=== PATIENT | female | born 1970 | race Caucasian/White ===

== ENCOUNTER 2018-02-24 07:06 | Emergency (ER) | payer OTHER ==
--- NOTE | 2018-02-24 07:19 | ED ---
Headache - History Of Current Complaint Chief Complaint: EDHeadache Stated Complaint: HEADACHE Time Seen by Provider: 02/24/18 07:09 Hx Last Menstrual Period: 05/13/12 - Allergies/Home Medications Allergies/Adverse Reactions: Allergies Allergy/AdvReac Type Severity Reaction Status Date / Time MS Iodinated Contrast Media Allergy Intermediate Hives Verified 07/03/16 14:35 [IV CONTRAST DYE] MS Leuprolide [From Lupron] Allergy Intermediate Rash Verified 07/03/16 14:35 MS Erythromycin Allergy Rash Verified 07/03/16 14:35 [Erythromycin] horse hair serum Allergy Rash Uncoded 07/03/16 14:35 PMH/Surg Hx/FS Hx/Imm Hx Endocrine/Hematology History: Reports: Other Endocrine/Hematological Disorders - Factor V Liden Respiratory History: Denies: Other Respiratory Problems/Disorders History: Reports: Other Problems/Disorders - severe bleeding during giving Musculoskeletal History: Reports: Hx Arthritis - Surgical History Surgery Procedure, Year, and Place: sinus surgery Infectious Disease History: No Infectious Disease History: Denies: Traveled Outside the [place] in Last 30 Days - Family History Known Family History: Positive: Blood Disorder - Factor V liden, Other - Brain CA Negative: Cardiac Disease, Hypertension, Diabetes - Social History Alcohol Use: Weekly Alcohol Amount: 1-3/week Substance Use Type: Reports: None Smoking Status (MU): Never Smoked Tobacco Physical Exam Vital Signs On Initial Exam: Initial Vitals Temp Pulse Resp BP Pulse Ox 98.1 F 76 16 130/80 98 02/24/18 07:09 02/24/18 07:09 02/24/18 07:09 02/24/18 07:09 02/24/18 07:09 Diagnostics - Vital Signs Vital Signs Temp Pulse Resp BP Pulse Ox 02/24/18 07:09 98.1 F 76 16 130/80 98 - Laboratory Lab Statement: Any lab studies that have been ordered have been reviewed, and results considered in the medical decision making process. Discharge - Discharge Plan Referrals: Ilda Dumont MD [Primary Care Provider] -
[2018-02-24 07:44] LABS: ABS Basophils 0 10^3/ul (0-0.2); ABS Eosinophils 0.1 10^3/ul (0-0.6); ABS Monocytes 0.3 10^3/ul (0-0.8); ABS Neutrophils 4.8 10^3/ul (1.5-7.7); ABS Nucleated RBC 0 10^3/ul; Eosinophil % 2.3 % (0-6); Hematocrit 35 % (35-47); Hemoglobin 12.1 g/dl (12.0-16.0); Lymphocyte % 16.5 % (25-47); Mean Corpuscular HGB Conc 35 g/dl (31-36); Mean Corpuscular Hemoglobin 34 pg (27-31); Mean Corpuscular Volume 98 fL (80-97); Mean Platelet Volume 8.6 um3 (7.4-10.4); Nucleated Red Blood Cells % 0; Platelet Count 208 10^3/ul (150-450); Red Blood Count 3.51 10^6/ul (4.00-5.40); Red Cell Distribution Width 12 % (10.5-15); White Blood Count 6.3 10^3/ul (3.5-10.8)
[2018-02-24 07:50] LABS: INR 0.86 (0.77-1.02)
[2018-02-24 07:59] LABS: EGFR Non-African American 71.1 (>60)
--- NOTE | 2018-02-24 08:01 | RAD ---
INDICATION: Headaches COMPARISON: CT brain July 01, 2016 TECHNIQUE: Noncontrast axial source images were acquired from the skull base to the vertex. FINDINGS: Ventricles/sulci: The ventricles and cisterns are normal in size and configuration for age. 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 Intracranial hemorrhage:None. Extra-axial spaces: There are no abnormal extra axial fluid collections or evidence of extra-axial mass. Calvarium: There is no calvarial fracture or other calvarial abnormality. Scalp: There is no evidence of scalp or extracalvarial soft tissue abnormality. Paranasal sinuses/mastoid: The paranasal sinuses and mastoid air cells are clear. Other: None. IMPRESSION: NO ACUTE INTRACRANIAL FINDINGS
[2018-02-24 09:35] VITALS: BP 110/67
--- NOTE | 2018-02-24 13:08 | ED ---
Headache - HPI Summary HPI Summary: Patient is a 47-year-old female with no significant PMH presenting to the ED with right-sided frontal headache which has been intermittent, rated a 8/10 in severity, not acute onset and not worst of life. She states she is not prone to headaches or migraines. She states symptoms have been present for last 2 days and began when she was visiting [place]. She recently returned continues to have the headache although it has decreased in severity. She has not taken anything [id number] for medications. - History Of Current Complaint Chief Complaint: EDHeadache Stated Complaint: HEADACHE Time Seen by Provider: 02/24/18 07:09 Hx Obtained From: Patient Hx Last Menstrual Period: 05/13/12 Onset/Duration: Started days ago Initially Headache Was: Initial Pain Scale(0-10)= - 8 Timing: Intermittent, Lasting:, Hours Character: Sharp Location of Headache: Frontal - right side Aggravating Factor: Nothing Allevating Factors: Nothing Associated Signs And Symptoms: Negative - Risk Factors SAH Risk Factors: Negative Meningitis Risk Factors: Negative SDH Risk Factors: Negative Temporal Arteritis Risk Factors: Female - Allergies/Home Medications Allergies/Adverse Reactions: Allergies Allergy/AdvReac Type Severity Reaction Status Date / Time erythromycin base Allergy Rash Verified 02/24/18 07:37 Iodinated Contrast- Oral and Allergy Hives Verified 02/24/18 07:37 IV Dye leuprolide Allergy Rash Verified 02/24/18 07:37 horse hair serum Allergy Rash Uncoded 07/03/16 14:35 PMH/Surg Hx/FS Hx/Imm Hx Previously Healthy: Yes Endocrine/Hematology History: Reports: Other Endocrine/Hematological Disorders - Factor V Liden Respiratory History: Denies: Other Respiratory Problems/Disorders History: Reports: Other Problems/Disorders - severe bleeding during giving Musculoskeletal History: Reports: Hx Arthritis - Surgical History Surgery Procedure, Year, and Place: sinus surgery - Immunization History Hx Pertussis Vaccination: No Immunizations Up to Date: Unable to Obtain/Confirm Infectious Disease History: No Infectious Disease History: Denies: Traveled Outside the [place] in Last 30 Days - Family History Known Family History: Positive: Blood Disorder - Factor V liden, Other - Brain CA Negative: Cardiac Disease, Hypertension, Diabetes - Social History Occupation: Employed Full-time Lives: With Family Alcohol Use: Weekly Alcohol Amount: 1-3/week Hx Substance Use: No Substance Use Type: Reports: None Hx Tobacco Use: No Smoking Status (MU): Never Smoked Tobacco Review of Systems Constitutional: Negative Negative: Fever, Chills, Fatigue, Skin Diaphoresis Negative: Palpitations, Chest Pain Negative: Shortness Of Breath, Cough Genitourinary: Negative Positive: no symptoms reported, see HPI Negative: Arthralgia, Myalgia Skin: Negative Positive: Headache All Other Systems Reviewed And Are Negative: Yes Physical Exam Triage Information Reviewed: Yes Vital Signs On Initial Exam: Initial Vitals Temp Pulse Resp BP Pulse Ox 98.1 F 76 16 130/80 98 02/24/18 07:09 02/24/18 07:09 02/24/18 07:09 02/24/18 07:09 02/24/18 07:09 Vital Signs Reviewed: Yes Appearance: Positive: Well-Appearing, Well-Nourished Skin: Positive: Warm, Skin Color Reflects Adequate Perfusion Head/Face: Positive: Normal Head/Face Inspection. Negative: Temporal Artery Tenderness, TMJ Tenderness Eyes: Positive: EOMI, SAAD, Conjunctiva Clear Neck: Positive: Supple, No Lymphadenopathy Respiratory/Lung Sounds: Positive: Clear to Auscultation, Breath Sounds Present Cardiovascular: Positive: RRR, Pulses are Symmetrical in both Upper and Lower Extremities Musculoskeletal: Positive: Normal, Strength/ROM Intact Neurological: Positive: Speech Normal Psychiatric: Positive: Normal, Affect/Mood Appropriate AVPU Assessment: Alert Diagnostics - Vital Signs Vital Signs Temp Pulse Resp BP Pulse Ox 02/24/18 09:31 98.2 F 89 18 110/67 100 02/24/18 07:09 98.1 F 76 16 130/80 98 - Laboratory Lab Results: Lab Results 02/24/18 02/24/18 02/24/18 Range/Units 07:32 07:32 07:32 WBC 6.3 (3.5-10.8) 10^3/ul RBC 3.51 L (4.00-5.40) 10^6/ul Hgb 12.1 (12.0-16.0) g/dl Hct 35 (35-47) % MCV 98 H (80-97) fL MCH 34 H (27-31) pg MCHC 35 (31-36) g/dl RDW 12 (10.5-15) % Plt Count 208 (150-450) 10^3/ul MPV 8.6 (7.4-10.4) um3 Neut % (Auto) 75.7 (38-83) % Lymph % (Auto) 16.5 L (25-47) % [place] % (Auto) 4.7 (0-7) % Eos % (Auto) 2.3 (0-6) % Baso % (Auto) 0.8 (0-2) % Absolute Neuts (auto) 4.8 (1.5-7.7) 10^3/ul Absolute Lymphs (auto) 1.0 (1.0-4.8) 10^3/ul Absolute Monos (auto) 0.3 (0-0.8) 10^3/ul Absolute Eos (auto) 0.1 (0-0.6) 10^3/ul Absolute Basos (auto) 0 (0-0.2) 10^3/ul Absolute Nucleated RBC 0 10^3/ul Nucleated RBC % 0 ESR 12 (0-14) mm/Hr INR (Anticoag Therapy) 0.86 (0.77-1.02) Sodium 139 (135-145) mmol/L Potassium 3.8 (3.5-5.0) mmol/L Chloride 108 (101-111) mmol/L Carbon Dioxide 25 (22-32) mmol/L Anion Gap 6 (2-11) mmol/L BUN 11 (6-24) mg/dL Creatinine 0.85 (0.51-0.95) mg/dL Est GFR ( Amer) 86.0 (>60) Est GFR (Non-Af Amer) 71.1 (>60) BUN/Creatinine Ratio 12.9 (8-20) Glucose 95 (70-100) mg/dL Calcium 8.4 L (8.6-10.3) mg/dL C-Reactive Protein 4.27 (<8.01) mg/L Result Diagrams: 02/24/18 07:32 02/24/18 07:32 Lab Statement: Any lab studies that have been ordered have been reviewed, and results considered in the medical decision making process. Headache Course/Dx - Course Course Of Treatment: During the course of treatment, the patient is evaluated for acute headache. She denies any pain currently some meds were not given. Labs obtained which show a normal ESR, and all other labs WNL. CT brain obtained which shows no acute intracranial abnormalities. She is discharged home with a diagnosis of headache. No photophobia, tearing from the eye. Denies any nausea. She understands return precautions and will return for any worsening or changing symptoms. - Diagnoses Differential Diagnosis/HQI/PQRI: Migraine, Temporal Arteritis, Tension Headache Provider Diagnoses: Headache Discharge - Sign-Out/Discharge Documenting (check all that apply): Patient Departure - Discharge Plan Condition: Stable Disposition: HOME Patient Education Materials: Acute Headache (ED) Referrals: Aylssa Vieira MD [Medical Doctor] - Ilda Dumont MD [Primary Care Provider] - Additional Instructions: If you develop any worsening or changing symptoms, return to the ED immediately - Billing Disposition and Condition Condition: STABLE Disposition: Home
== END 2018-02-24 09:31 | disposition home or self-care (01) ==
LOC: ED 07:06
DX: R51 Headache (principal); D68.51 Activated protein C resistance
CPT/HCPCS: 36415; 70450; 80048; 85025; 85610; 85652; 86140; 99282

== ENCOUNTER 2018-08-01 16:21 | Emergency (ER) | payer BC ==
--- OUTSIDE RECORDS SUMMARY | 2018-08-01 16:25 | XMS REPORT | Continuity of Care Document ---
:1970 External Reference #:[id number] Author Name Madeleine Corrales Care Team Providers Name Role Phone Christiano Lind MD Primary Care Physician Unavailable Payers Type Date Identification Numbers Payment Provider Subscriber Expires: 2017 Policy Number: [id number] Levi Childs PayID: [id number] [address] [place] [address] Effective: 2012 Policy Number: [facility] Belkis Childs [id number] Expires: 2015 Group Number: [id number] [address] Group Name: [place] [address] Policy Number: [id number] [facility] Belkis Childs PayID: [id number] [address] [address] MARTHA Bartlett [address] Advance Directives Description No Information Available Problems Description No Active Problems Family History Date Family Member(s) Problem(s) Comments Father due to Pneumonia () Father Prostate Cancer Mother Mental Illness OCD/paranoia First Son Cancer brain Social History Type Date Description Comments Sex Unknown Marital Status Lives With Lives With Son Occupation Currently Working [employer] to [employer] ETOH Use Currently consumes alcohol ETOH Use Occasionally consumes alcohol Tobacco Use Start: Unknown Patient has never smoked Recreational Drug Use Denies Drug Use Smoking Status Reviewed: 07/09/18 Patient has never smoked Exercise Type/Frequency Exercises regularly Allergies, Adverse Reactions, Alerts Date Description Reaction Status Severity Comments 05/20/2012 seasonal Active 05/20/2012 Amoxicillin Active 05/20/2012 Erythromycin Active 05/20/2012 Lupron Active Medications Medication Date Status Form Strength Qnty SIG Indications Ordering Provider [place] Active Tablets 0.1-0.02&0. 90tabs one Z01.419 Dvorah 018 01mg kristie Barreto MD po daily Levofloxacin Active Tablets 500mg 7tabs 1 po qd 486 Christiano Lind M.D.,FACP Mucinex DM 0 Active Tablets ER 30-600mg 2x/day Unknown 000 12HR as needed Xarelto 0 Active Tablets 20mg 1 by Unknown 000 mouth every day Immunizations Description No Information Available Vital Signs Date Vital Result Comment 07/09/2018 11:11am Height 65 inches 5'5" Weight 156.00 lb Heart Rate 80 /min BP Systolic 120 mmHg BP Diastolic 78 mmHg O2 % BldC Oximetry 98 % BMI (Body Mass Index) 26.0 kg/m2 Last Menstrual Period [id number] 05/20/2012 9:54am Height 65 inches 5'5" Weight 139.00 lb Heart Rate 76 /min BP Systolic Sitting 100 mmHg BP Diastolic Sitting 64 mmHg Respiratory Rate 16 /min Body Temperature 98.1 F lt ear BMI (Body Mass Index) 23.1 kg/m2 Results Test Date Facility Test Result H/L Range Note Laboratory test 07/09/2018 [facility] Cytology <pending> finding [address] [place] [address] [phone] CBC Auto Diff 07/01/2016 [facility] White Blood 7.7 10^3/uL N 3.5-10.[address] [place] [address] [phone] Red Blood Count 3.87 10^6/uL Low 4.0-5.4 Hemoglobin 13.1 g/dL N 12.0-16.0 Hematocrit 38 % N 35-47 Mean Corpuscular Volume 99 fL High 80-97 Mean Corpuscular Hemoglobin 34 pg High 27-31 Mean Corpuscular HGB Conc 34 g/dL N 31-36 Red Cell Distribution Width 12 % N 10.5-15 Platelet Count 234 10^3/uL N 150-450 Mean Platelet Volume 9 um3 N 7.4-10.4 Abs Neutrophils 6.4 10^3/uL N 1.5-7.7 Abs Lymphocytes 0.9 10^3/uL Low 1.0-4.8 Abs Monocytes 0.3 10^3/uL N 0-0.8 Abs Eosinophils 0 10^3/uL N 0-0.6 Abs Basophils 0 10^3/uL N 0-0.2 Abs Nucleated RBC 0 10^3/uL N Granulocyte % 82.4 % N 38-83 Lymphocyte % 12.0 % Low 25-47 Monocyte % 4.5 % N 1-9 Eosinophil % 0.5 % N 0-6 Basophil % 0.6 % N 0-2 Nucleated Red Blood Cells % 0 N Comp Metabolic Panel 07/01/2016 [facility] Sodium 138 mmol/L N 133-145 [address] [place] [address] [phone] Potassium 3.8 mmol/L N 3.5-5.0 Chloride 106 mmol/L N 101-111 Co2 Carbon Dioxide 26 mmol/L N 22-32 Anion Gap 6 mmol/L N 2-11 Glucose 98 mg/dL N 70-100 Blood Urea Nitrogen 20 mg/dL N 6-24 Creatinine 0.79 mg/dL N 0.51-0.95 BUN/Creatinine Ratio 25.3 High 8-20 Calcium 8.5 mg/dL Low 8.6-10.3 Total Protein 6.7 g/dL N 6.4-8.9 Albumin 3.9 g/dL N 3.2-5.2 Globulin 2.8 g/dL N 2-4 Albumin/Globulin Ratio 1.4 N 1-3 Total Bilirubin 0.50 mg/dL N 0.2-1.0 Alkaline Phosphatase 41 U/L N 34-104 Alt 9 U/L N 7-52 Ast 15 U/L N 13-39 Egfr Non- 77.7 N >60 Egfr 99.9 N >60 1 Laboratory test 07/01/2016 [facility] Magnesium 1.9 mg/dL N 1.9-2.7 finding [address] [place] [address] [phone] Troponin-I (TnI) 0.01 ng/mL N <0.04 2 TSH (Thyroid Stim Horm) 0.82 mcIU/mL N 0.34-5.60 B-Type Natriuretic Peptide BNP 19 pg/mL N 3 Urinalysis Profile 07/01/2016 [facility] Urine Color Yellow N [address] [place] [address] [phone] Urine Appearance Clear N Urine Specific [place] 1.014 N 1.010-1.030 Urine pH 6.0 N 5-9 Urine Urobilinogen Negative N Negative Urine Ketones Negative N Negative Urine Protein Negative N Negative Urine Leukocytes Negative N Negative Urine Blood 2+ Abnormal Negative Urine Nitrite Negative N Negative Urine Bilirubin Negative N Negative Urine Glucose Negative N Negative Urine White Blood Cell Trace(0-5/hpf) N Absent Urine Red Blood Cell Trace(0-2/hpf) N Absent Urine Bacteria Absent N Absent Urine Squamous Epithelial Cell Present Abnormal Absent Hepatitis 06/29/2012 [facility] Hepatitis A Nonreactive Nonreactive Acute Panel [address] [place] [address] [phone] Hepatitis B Core IgM Nonreactive Nonreactive Hepatitis B Surface Antigen Nonreactive Nonreactive Hepatitis C Antibody Nonreactive Nonreactive Laboratory test finding 05/29/2012 [facility] Lipase 41 U/L 22-[address] [place] [address] [phone] Troponin I 0 ng/mL 0-0.06 5 Comp Metabolic Panel 05/29/2012 [facility] Sodium 134 mmol/L 133-[address] [place] [address] [phone] Potassium 3.5 mmol/L 3.5-5.0 Chloride 102 mmol/L 101-111 Co2 Carbon Dioxide 24.0 mmol/L 22-32 Anion Gap 8.0 mmol/L 2-11 Glucose 101 mg/dL High 70-100 Blood Urea Nitrogen 16 mg/dL 6-24 Creatinine 0.70 mg/dL 0.50-1.40 BUN/Creatinine Ratio 22.9 High 8-20 Calcium 8.6 mg/dL 8.1-9.9 Total Protein 7.7 GM/DL 6.2-8.1 Albumin 4.3 GM/DL 3.6-5.4 Globulin 3.4 GM/DL 2-4 Albumin/Globulin Ratio 1.3 1-3 Total Bilirubin 0.9 mg/dL 0.1-1.0 6 Alkaline Phosphatase 66 U/L 30-110 Alt 16 U/L 14-54 Ast 24 U/L 12-42 Egfr Non- 91.3 >60 Egfr 117.5 >60 7 Laboratory test 05/29/2012 [facility] B Type 10.0 pg/mL 0- [address] [place] [address] Peptide [phone] CBC Auto Diff 05/29/2012 [facility] White Blood 6.4 4.8-10.[address] Count 10^3/uL [place], [place] [id number] [phone] Red Blood Count 3.76 10^6/uL Low 4.0-5.4 Hemoglobin 13.1 g/dL 12.0-16.0 Hematocrit 38 % 35-47 Mean Corpuscular Volume 101 fL High 80-97 Mean Corpuscular Hemoglobin 35 pg High 27-31 Mean Corpuscular HGB Conc 35 g/dL 31-36 Red Cell Distribution Width 12 % 10.5-15 Platelet Count 235 10^3/uL 150-450 Mean Platelet Volume 8 um3 7.4-10.4 Abs Neutrophils 4.2 10^3/uL 1.5-7.7 Abs Lymphocytes 1.6 10^3/uL 1.0-4.8 Abs Monocytes 0.4 10^3/uL 0-0.8 Abs Eosinophils 0.2 10^3/uL 0-0.6 Abs Basophils 0.1 10^3/uL 0-0.2 Abs Nucleated RBC 0.01 10^3/uL Granulocyte % 65.1 % 38-83 Lymphocyte % 24.8 % Low 25-47 Monocyte % 5.9 % 1-9 Eosinophil % 3.3 % 0-6 Basophil % 0.9 % 0-2 Nucleated Red Blood Cells % 0.1 Laboratory test 05/29/2012 [facility] Urine Negative Negative [address] [place], [place] [address] [phone] Urine 05/29/2012 [facility] Urine WBC None Seen None Seen Microscopic [address] [place] [address] [phone] Urine RBC 1+ (<3 /hpf) None Seen Urine Epithelial Cells 1+ Squamous /hpf None Seen Urinalysis 05/29/2012 [facility] Urine Color Yellow [address] [place] [address] [phone] Urine Appearance Clear Urine Specific [place] 1.008 Low 1.010-1.030 Urine Esterase Negative Negative Urine Nitrate Negative Negative Urine Urobilinogen Negative Negative Urine Protein Negative Negative Urine pH 6.0 5-9 Urine Blood Trace Abnormal Negative Urine Ketones Negative Negative Urine Bilirubin Negative Negative Urine Glucose Negative Negative Laboratory test 05/29/2012 [facility] D Dimer < 200 Less [address] Quantitative NG/ML Than [address] [place] [address] [phone] CBC Auto Diff 05/20/2012 [facility] White Blood Count 4.6 Low 4.8-10.[address] 10^3/[place] [address] [phone] Red Blood Count 3.95 10^6/uL Low 4.0-5.4 Hemoglobin 13.3 g/dL 12.0-16.0 Hematocrit 39 % 35-47 Mean Corpuscular Volume 99 fL High 80-97 Mean Corpuscular Hemoglobin 34 pg High 27-31 Mean Corpuscular HGB Conc 34 g/dL 31-36 Red Cell Distribution Width 12 % 10.5-15 Platelet Count 177 10^3/uL 150-450 Mean Platelet Volume 11 um3 High 7.4-10.4 Abs Neutrophils 3.3 10^3/uL 1.5-7.7 Abs Lymphocytes 0.8 10^3/uL Low 1.0-4.8 Abs Monocytes 0.3 10^3/uL 0-0.8 Abs Eosinophils 0.2 10^3/uL 0-0.6 Abs Basophils 0 10^3/uL 0-0.2 Abs Nucleated RBC 0 10^3/uL Granulocyte % 71.4 % 38-83 Lymphocyte % 17.3 % Low 25-47 Monocyte % 6.8 % 1-9 Eosinophil % 3.7 % 0-6 Basophil % 0.8 % 0-2 Nucleated Red Blood Cells % 0.1 Mycoplasma 05/20/2012 [facility] Mycoplasma 2.53 index <= 0.[address] pneumoniae IgG Igg/[place] [address] AB [phone] Mycoplasma pneumoniae IgM AB 1.04 index Abnormal <=0.90 10 Mycoplasma pneumoniae IgM Ifa Negative 11 Sputum Culture & 05/20/2012 [facility] Sputum Culture (SEE NOTE ) [address] [place] [address] [phone] 1 Because ethnic data is not always readily available, this report includes an eGFR for both -Americans and non- Americans. The National Kidney Disease Education Program (NKDEP) does not endorse the use of the MDRD equation for patients that are not between the ages of 18 and 70, are , have extremes of body size, muscle mass, or nutritional status, or are non- or non-. According to the National Kidney Foundation, irrespective of diagnosis, the stage of the disease is based on the level of kidney function: Stage Description GFR(mL/min/1.73 m(2)) 1 Kidney damage with normal or decreased GFR 90 2 Kidney damage with mild decrease in GFR 60-89 3 Moderate decrease in GFR 30-59 4 Severe decrease in GFR 15-29 5 Kidney failure <15 (or dialysis) 2 NOTE: Critical Troponin is now >0.03 ng/mL. 99th percentile=0.04 ng/mL Troponin results at [facility] and [facility] are not interchangeable. 3 >100 to <200 pg/mL: likely compensated congestive heart failure (CHF) 200 to 400 pg/mL: likely moderate CHF >400 pg/mL: likely moderate to severe CHF 4 Comment: b Comment: s 5 Reference Range and Interpretation: TnI (ng/ml) Interpretation Less Than 0.06 ng/mL Not supportive of diagnosis of ME 0.06 - 0.50 ng/ml Indeterminate: suggest serial studies if clinically indicated. Greater than 0.5 ng/mL Consistent with diagnosis of ME 6 A metabolite of Naproxen, O-desmethylnaproxen, has been shown to interfere with the Jendrassik-Luyando method for measuring total bilirubin. Samples from patients who have taken Naproxen have shown spurious elevation in total bilirubin levels. 7 Because ethnic data is not always readily available, this report includes an eGFR for both -Americans and non- Americans. The National Kidney Disease Education Program (NKDEP) does not endorse the use of the MDRD equation for patients that are not between the ages of 18 and 70, are , have extremes of body size, muscle mass, or nutritional status, or are non- or non-. According to the National Kidney Foundation, irrespective of diagnosis, the stage of the disease is based on the level of kidney function: Stage Description GFR(mL/min/1.73 m(2)) 1 Kidney damage with normal or decreased GFR 90 2 Kidney damage with mild decrease in GFR 60-89 3 Moderate decrease in GFR 30-59 4 Severe decrease in GFR 15-29 5 Kidney failure <15 (or dialysis) 8 If is still suspected, please repeat test after 48 to 72 hours. This test detects intact HCG only and is indicated for the early detection of . 9 Please note: The following may produce a false positive D Dimer test: - Rheumatoid factor greater than 60 IU/ml - Plasma hemoglobin greater than 0.05 gm/dl - Bilirubin greater than 50 mg/dl - Lipids greater than 1000 mg/dl - FDP greater than 20 ug/ml 10 IgM result is reactive but NOT diagnostic. Confirmatory testing by immunofluorescence antibody (IFA) is required and has been ordered under test "Mycoplasma pneumoniae Antibody, IgM, by Immunofluorescence Assay (IFA), Serum." Test Performed by: [place] [address] Film Reproducer: Brian Zazueta III, M.D. R 11 M. pneumoniae IgM performed by immunofluorescence antibody (IFA). Test Performed by: [place] [address] Film Reproducer: Brian Zazueta III, M.D. R 12 RUN DATE: 05/22/12 [facility] LAB LIVE PAGE 1 RUN TIME: [address] [place] [address] Specimen Inquiry Name: BELKIS CHILDS Dahlia : [address]: Diogo CAMERON, Christiano Valdivia Acct: [id number] Unit: [id number] AGE: 41 Location: [facility] Re05/20/12 SEX: F Status: REG REF SPEC: [id number] RAMESH: 05/20/[address] [facility] [address]: Diogo CAMERON,Carlos Valdivia REQ: [id number] RECD: 05/20/12 STATUS: COMP _ SOURCE: SPUTUM,EXP SPDESC: ORDERED: Sputum Cult/GS QUERIES: Medent Number [id number] Procedure Result Verified Site Sputum Smear Final 05/21/12- 0833 ML 2+ Epithelial Cells 1+ Polys Mixed Morphotypes, resembling Normal Sebastian Sputum Culture Final 05/22/12- 1037 ML Organism 1 NORMAL SEBASTIAN Quantity 2+ END OF REPORT * ML=Testing performed at Main Lab DEPARTMENT OF PATHOLOGY, [address] [place] [address] Jose L Fraga M.D. Director [facility] Permit #[id number] Procedures Date Code Description Status 07/02/2016 49823 ECHO Transthorasic Realtime 2D W Doppler & Color Flow Hosp Completed 07/02/2016 34509 EKG, Interpretation Only Completed Encounters Type Date Location Provider Dx Diagnosis Office Visit 07/02/2016 [facility] Miguel Oniel, R55 Syncope and 1:04p Assoc,pc Hospitalists MD collapse R06.02 Shortness of breath D68.51 Activated protein C resistance Office Visit 07/01/2016 [facility] Dejan D68.51 Activated 1:03p Assoc,pc [place], N.P. protein C Hospitalists resistance R06.02 Shortness of breath R55 Syncope and collapse Office Visit 05/20/2012 9:50a [facility] Internal Christiano a[facility] Pneumonia Medicine - Aparna Lind,FACP Organism Unspec [place] Plan of Treatment Future Appointment(s):07/24/2018 10:20 am - Samira Chester MD at 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
--- OUTSIDE RECORDS SUMMARY | 2018-08-01 16:25 | XMS REPORT | Continuity of Care Document ---
:1970 External Reference #:[id number] Author Name Brianna Zavaleta Care Team Providers Name Role Phone Christiano Lind MD Primary Care Physician Unavailable Payers Type Date Identification Numbers Payment Provider Subscriber Expires: 2017 Policy Number: [id number] Levi Childs PayID: [id number] [address] [place] [address] Effective: 2012 Policy Number: [facility] Belkis Childs [id number] Expires: 2015 Group Number: [id number] [address] Group Name: [place] [address] Policy Number: [id number] [facility] Belkis Childs PayID: [id number] [address] [address] [place] [address] Advance Directives Description No Information Available Problems Description No Active Problems Family History Date Family Member(s) Problem(s) Comments : (age 90 Father due to Pneumonia Years) Father Prostate Cancer Father Dementia Mother Mental Illness OCD/paranoia First Son Cancer brain. Younger son, Familia. . Social History Type Date Description Comments Sex Unknown Marital Status Lives With Lives With Son Occupation Currently Working [employer] to [employer]. 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 90tabs one Z01.419 Dvorah 018 01mg kristie Barreto MD po daily Mucinex DM Active Tablets ER 30-600mg 2x/day Unknown 000 12HR as needed Xarelto 0 Active Tablets 20mg 1 by Unknown 000 mouth every day Multi Vitamin 0 Active Tablets 1 by Unknown 000 mouth every day Levofloxacin Hx Tablets 500mg 7tabs 1 po qd 486 Christiano Lind, Aparna,[facility] 012 Immunizations CPT Code Status Date Vaccine Lot # [id number] Given 07/24/2018 Tdap - Tetanus/Diptheria/Acellular Pertussis [id number] Given 07/24/2018 Influenza Virus Vaccine, Quadrivalent, Split, [id number] Preservative Free Vital Signs Date Vital Result Comment 07/24/2018 10:19am Height 65 inches 5'5" Weight 154.44 lb Heart Rate 78 /min BP Systolic 110 mmHg BP Diastolic 62 mmHg Body Temperature 97.7 F O2 % BldC Oximetry 98 % BMI (Body Mass Index) 25.7 kg/m2 07/09/2018 11:11am Height 65 inches 5'5" Weight 156.00 lb Heart Rate 80 /min BP Systolic 120 mmHg BP Diastolic 78 mmHg O2 % BldC Oximetry 98 % BMI (Body Mass Index) 26.0 kg/m2 Last Menstrual Period [id number] 05/20/2012 9:54am Height 65 inches 5'5" Weight 139.00 lb Heart Rate 76 /min BP Systolic Sitting 100 mmHg BP Diastolic Sitting 64 mmHg Respiratory Rate 16 /min Body Temperature 98.1 F lt ear BMI (Body Mass Index) 23.1 kg/m2 Results Test Date Facility Test Result H/L Range Note Laboratory test 07/09/2018 [facility] Cytology SEE RESULT [address] [place] [address] [phone] CBC Auto Diff 07/01/2016 [facility] White Blood 7.7 10^3/uL N 3.5-10.[address] [place] [address] [phone] Red Blood Count 3.87 10^6/uL Low 4.0-5.4 [...] % 0 N Comp Metabolic Panel 07/01/2016 [facility] Sodium 138 mmol/L N 133-145 [address] [place] [address] [phone] Potassium 3.8 mmol/L N 3.5-5.0 Chloride 106 [...] 77.7 N >60 Egfr 99.9 N >60 2 Laboratory test 07/01/2016 [facility] Magnesium 1.9 mg/dL N 1.9-2.[address] [place] [address] [phone] Troponin-I (TnI) 0.01 ng/mL N <0.04 3 TSH (Thyroid Stim Horm) 0.82 mcIU/mL N 0.34-5.60 B-Type Natriuretic Peptide BNP 19 pg/mL N 4 Urinalysis Profile 07/01/2016 [facility] Urine Color Yellow N [address] [place] [address] [phone] Urine Appearance Clear N Urine Specific Becker 1.014 N 1.010-1.030 Urine pH 6.0 N [...] Epithelial Cell Present Abnormal Absent Hepatitis 06/29/2012 [facility] Hepatitis A Nonreactive Nonreactive Acute Panel [address] [facility] [address] [phone] Hepatitis B Core IgM Nonreactive Nonreactive Hepatitis B Surface Antigen Nonreactive Nonreactive Hepatitis C Antibody Nonreactive Nonreactive Laboratory test 05/29/2012 [facility] D Dimer < 200 NG/ML Less 5 finding [address] [facility] Quantitative Than [address] [place] [address] [phone] Urinalysis 05/29/2012 [facility] Urine Color Yellow [address] [place] [address] [phone] Urine Appearance Clear Urine Specific Becker 1.008 Low 1.010-1.030 Urine Esterase Negative Negative Urine Nitrate Negative Negative Urine Urobilinogen Negative Negative Urine Protein Negative Negative Urine pH 6.0 5-9 Urine Blood Trace Abnormal Negative Urine Ketones Negative Negative Urine Bilirubin Negative Negative Urine Glucose Negative Negative Urine Microscopic 05/29/2012 [facility] Urine WBC None Seen None Seen [address] [place] [address] [phone] Urine RBC 1+ (<3 /hpf) None Seen Urine Epithelial Cells 1+ Squamous /hpf None Seen Laboratory test 05/29/2012 [facility] Urine Negative Negative [address] [place] [address] [phone] CBC Auto Diff 05/29/2012 [facility] White Blood 6.4 10^3/uL 4.8-10.[address] [place] [address] [phone] Red Blood Count 3.76 10^6/uL Low 4.0-5.4 [...] Blood Cells % 0.1 Laboratory test 05/29/2012 [facility] B Type 10.0 pg/mL 0- [address] [place] [address] Peptide [phone] Comp Metabolic 05/29/2012 [facility] Sodium 134 mmol/L 133- [address] [place] [address] [phone] Potassium 3.5 mmol/L 3.5-5.0 Chloride 102 mmol/L [...] 1.3 1-3 Total Bilirubin 0.9 mg/dL 0.1-1.0 7 Alkaline Phosphatase 66 U/L 30-110 Alt 16 U/L 14-54 Ast 24 U/L 12-42 Egfr Non- 91.3 >60 Egfr 117.5 >60 8 Laboratory test finding 05/29/2012 [facility] Lipase 41 U/L 22-[address] [place] [address] [phone] Troponin I 0 ng/mL 0-0.06 10 CBC Auto 05/20/2012 [facility] White Blood 4.6 10^3/uL Low 4.8 -10.[address] [place] [address] [phone] Red Blood Count 3.95 10^6/uL Low 4.0-5.4 [...] Red Blood Cells % 0.1 Mycoplasma 05/20/2012 [facility] Mycoplasma 2.53 index <= 0.[address] pneumoniae IgG Igg/[place] [address] AB [phone] Mycoplasma pneumoniae IgM AB 1.04 index Abnormal <=0.90 11 Mycoplasma pneumoniae IgM Ifa Negative 12 Sputum Culture & 05/20/2012 [facility] Sputum Culture (SEE NOTE ) [address] [place] [address] [phone] 1 SEE RESULT BELOW Name: BELKIS CHILDS : [address]: Geraldine Barreto MD Acct: [id number] Unit: [id number] AGE: 48 Location: [facility] Re07/09/18 SEX: F Status: REG REF SPEC: [id number] RAMESH: 07/09/18-1218 [facility] DR: Geraldine Barreto MD REQ: [id number] RECD: 07/09/188574 STATUS: SOUT _ ORDERED: TP IMAGE ANALYS, HPV/Thin Prep COMMENTS: [id number] Negative for Intraepithelial lesion or Malignancy Date Time Test Result Flag (u) Normal Range 07/09/18 1218 @ HPV RNA Negative Negative @ @ The high-risk HPV types detected by the assay include: 16, @ 18, 31, 33, 35, 39, 45, 51, 52, 56, 58, 59, 66, and 68. A. Ectocervical/Endocervical Specimen Adequacy: Satisfactory of evaluation Transformation zone component identified Patient Information: HPV: High risk HPV RNA testing regardless of pap results. Actual Specimen Date: 07/09/18 ?: N Post Menopausal?: N Hysterectomy?: N Signed by and Reported on: LAYLA Edwards(ASCP) 1320 This Pap test was evaluated with the assistance of the PersistIQPrep Test Imaging System. Due to cytologic findings at the pattern painter microscope, comprehensive manual rescreening by a Claim Auditor may be required. The Pap Smear is a screening test designed to aid in the detection of premalignant and malignant conditions of the uterine cervix. It is not a diagnostic procedure and should not be used as the sole means of detecting cervical cancer. Both false- positive and false- negative reports do occur. Depending on your risk status, a Pap smear should be obtained and evaluated every 1-3 years. END OF REPORT DEPARTMENT OF PATHOLOGY, [address] [place] [address] Jose L Fraga M.D. Director [facility] # [id number] 2 Because ethnic data is not always readily [...] 15-29 5 Kidney failure <15 (or dialysis) 3 NOTE: Critical Troponin is now >0.03 ng/mL. 99th percentile=0.04 ng/mL Troponin results at [facility] and [facility] are not interchangeable. 4 >100 to <200 pg/mL: likely compensated congestive heart failure (CHF) 200 to 400 pg/mL: likely moderate CHF >400 pg/mL: likely moderate to severe CHF 5 Please note: The following may produce a false positive D Dimer test: - Rheumatoid factor greater than 60 IU/ml - Plasma hemoglobin greater than 0.05 gm/dl - Bilirubin greater than 50 mg/dl - Lipids greater than 1000 mg/dl - FDP greater than 20 ug/ml 6 If is still suspected, please repeat test after 48 to 72 hours. This test detects intact HCG only and is indicated for the early detection of . 7 A metabolite of Naproxen, O-desmethylnaproxen, has been shown to interfere with the Jendrassik-Tradewinds method for measuring total bilirubin. Samples from patients who have taken Naproxen have shown spurious elevation in total bilirubin levels. 8 Because ethnic data is not always readily [...] 15-29 5 Kidney failure <15 (or dialysis) 9 Comment: b Comment: s 10 Reference Range and Interpretation: TnI (ng/ml) Interpretation Less Than 0.06 ng/mL Not supportive of diagnosis of [place] 0.06 - 0.50 ng/ml Indeterminate: suggest serial studies if clinically indicated. Greater than 0.5 ng/mL Consistent with diagnosis of [place] 11 IgM result is reactive but NOT diagnostic. Confirmatory testing by immunofluorescence antibody (IFA) is required and has been ordered under test "Mycoplasma pneumoniae Antibody, IgM, by Immunofluorescence Assay (IFA), Serum." Test Performed by: [place] [address] Equine Manager: Brian Zazueta III, M.D. R 12 M. pneumoniae IgM performed by immunofluorescence antibody (IFA). Test Performed by: [place] [address] Equine Manager: Brian Zazueta III, M.D. R 13 RUN DATE: 05/22/12 [facility] LAB LIVE PAGE 1 RUN TIME: [address] [place] [address] Specimen Inquiry Name: BELKIS CHILDS : [address]: Diogo CAMERON, Christiano Valdivia Acct: [id number] Unit: [id number] AGE: 41 Location: [facility] Re05/20/12 SEX: F Status: REG REF SPEC: [id number] RAMESH: 05/20/12-[address]: Diogo CAMERON,Carlos Valdivia REQ: [id number] RECD: 05/20/12 STATUS: COMP _ SOURCE: SPUTUM,EXP SPDESC: ORDERED: Sputum Cult/GS QUERIES: Medent Number [id number] Procedure Result Verified Site Sputum Smear Final 05/21/12- 0833 ML 2+ Epithelial Cells 1+ Polys Mixed Morphotypes, resembling Normal Sebastian Sputum Culture Final 05/22/12- 1037 ML Organism 1 NORMAL SEBASTIAN Quantity 2+ END OF REPORT * ML=Testing performed at Main Lab DEPARTMENT OF PATHOLOGY, [address] [place] [address] Jose L Fraga M.D. Director [facility] Permit #[id number] Procedures Date Code Description Status 04/20/2017 03617683 Mammogram Completed 07/02/2016 41040 ECHO Transthorasic Realtime 2D W Doppler & Color Flow Completed Hosp 07/02/2016 80110 EKG, Interpretation Only Completed Encounters Type Date Location Provider Dx Diagnosis Office Visit 07/02/2016 [facility] Miguel Oniel, R55 Syncope and 1:04p Assoc,pc Hospitalists MD collapse R06.02 Shortness of breath D68.51 Activated protein C resistance Office Visit 07/01/2016 [facility] Dejan D68.51 Activated 1:03p Assoc,pc [place], N.P. protein C Hospitalists resistance R06.02 Shortness of breath R55 Syncope and collapse Office Visit 05/20/2012 9:50a Report Checker Internal Christiano D. [facility] Pneumonia Medicine - Aparna Lind,FACP Organism Unspec [place] Plan of Treatment 07/24/2018 - Samira Chester MDZ00.01 Encounter for general adult medical examination with abnormaComments:I encourage you to continue with regular exercise and healthy nutrition. I recommend you take Calcium supplements, 500 - 600 mg,with Vit D 400 iu, one tablet twice daily. You can get your lab resultsthrough the portal once you sign up. Otherwise, you will receive a copy in the mailFollow up:Physical in 1 yearZ12.11 Encounter for screening for malignant neoplasm of colonComments:Discussed need for colon cancer screening, including options for colonoscopy and TyevfctemA83 Encounter for immunization
[2018-08-01 16:56] VITALS: BP 131/69
--- NOTE | 2018-08-01 17:28 | UC ---
Back Pain HPI - HPI Summary HPI Summary: The patient is a 48-year-old female with a 3 to four-day history of right trapezius and right rhomboid muscle spasm and pain. He is unsure of any inciting injury. He has no numbness or tingling of her right arm. She is on xarelto for Leiden factor V deficiency. Eyes any chest pain or shortness of breath. He is not taking anything for pain. - History of Current Complaint Chief Complaint: UCUpperExtremity Stated Complaint: SHOULDER PAIN Time Seen by Provider: 08/01/18 17:04 Hx Obtained From: Patient Hx Last Menstrual Period: on control Onset/Duration: Sudden Onset, Lasting Days Timing: Constant Severity Initially: Mild Severity Currently: Moderate Pain Intensity: 4 Pain Scale Used: 0-10 Numeric Back Pain: Is Diffuse - see image Character: Throbbing, Spasmodic, Stiffness Aggravating Factor(s): Movement, Lifting, Bending, Cough Alleviating Factor(s): Rest Associated Signs And Symptoms: Positive: Negative Full Body (No Head): 1 - pain 2 - pain - Allergies/Home Medications Allergies/Adverse Reactions: Allergies Allergy/AdvReac Type Severity Reaction Status Date / Time erythromycin base Allergy Rash Verified 02/24/18 07:37 Iodinated Contrast- Oral and Allergy Hives Verified 02/24/18 07:37 IV Dye leuprolide Allergy Rash Verified 02/24/18 07:37 Penicillins Allergy Rash Verified 08/01/18 16:57 horse hair serum Allergy Rash Uncoded 07/03/16 14:35 Home Medications: Home Medications Rivaroxaban TAB(*) [Xarelto 10 mg (*)] 10 mg PO DAILY 08/01/18 [History Confirmed 08/01/18] PMH/Surg Hx/FS Hx/Imm Hx Previously Healthy: Yes - Surgical History Surgical History: None Surgery Procedure, Year, and Place: sinus surgery - Family History Known Family History: Positive: Blood Disorder - Factor V liden, Other - Brain CA Negative: Cardiac Disease, Hypertension, Diabetes - Social History Alcohol Use: Weekly Alcohol Amount: 1-3/week Substance Use Type: None Smoking Status (MU): Never Smoked Tobacco Review of Systems All Other Systems Reviewed And Are Negative: Yes Constitutional: Positive: Negative Skin: Positive: Negative Eyes: Positive: Negative ENT: Positive: Negative Respiratory: Positive: Negative Cardiovascular: Positive: Negative Gastrointestinal: Positive: Negative Genitourinary: Positive: Negative Motor: Positive: Negative Neurovascular: Positive: Negative Musculoskeletal: Positive: Myalgia Neurological: Positive: Negative Psychological: Positive: Negative Physical Exam Triage Information Reviewed: Yes Appearance: Well-Appearing, No Pain Distress, Well-Nourished Vital Signs: Initial Vital Signs Temp 98.9 F 08/01/18 16:49 Pulse 67 08/01/18 16:49 Resp 16 08/01/18 16:49 BP 131/69 08/01/18 16:49 Pulse Ox 100 08/01/18 16:49 Vital Signs Reviewed: Yes Eyes: Positive: Conjunctiva Clear ENT: Positive: Hearing grossly normal. Negative: Nasal congestion, Nasal drainage, Trismus, Muffled voice, Hoarse voice Neck: Negative: Supple - limited ROM both with flex ext and turning side to side Respiratory: Positive: Lungs clear, Normal breath sounds, No respiratory distress, No accessory muscle use Cardiovascular: Positive: RRR, No Murmur Musculoskeletal: Positive: ROM Intact, No Edema Neurological: Positive: Alert Psychological Exam: Normal Skin Exam: Normal Back Pain Course/Dx - Differential Dx/Diagnosis Provider Diagnosis: Strain of rhomboid muscle, Strain of right trapezius muscle Discharge - Sign-Out/Discharge Documenting (check all that apply): Patient Departure All imaging exams completed and their final reports reviewed: No Studies - Discharge Plan Condition: Stable Disposition: HOME Prescriptions: Cyclobenzaprine (NF) [Cyclobenzaprine 5 MG (NF)] 5 mg PO TID PRN #21 tab PRN Reason: Spasms - Muscle Patient Education Materials: Muscle Strain (ED) Referrals: Ilda Dumont MD [Primary Care Provider] - 5 Days Additional Instructions: PT consult tylenol muscle relaxant may cause drowsiness if it does don't take and drive or work - Billing Disposition and Condition Condition: STABLE Disposition: Home
== END 2018-08-01 17:30 | disposition home or self-care (01) ==
LOC: UCEAST 16:21
DX: S46.911A Strain of unspecified muscle, fascia and tendon at shoulder and upper arm level, right arm, initial encounter (principal); X58.XXXA Exposure to other specified factors, initial encounter; Y92.9 Unspecified place or not applicable; D68.2 Hereditary deficiency of other clotting factors; Z79.01 Long term (current) use of anticoagulants; Z88.0 Allergy status to penicillin; Z88.8 Allergy status to other drugs, medicaments and biological substances; Z88.1 Allergy status to other antibiotic agents; Z91.041 Radiographic dye allergy status
CPT/HCPCS: 99212; G0463

== ENCOUNTER 2020-04-19 21:02 | Observation (INO) ==
[2020-04-19 23:01] LABS: ABS Basophils 0.1 10^3/ul (0-0.2); ABS Eosinophils 0.1 10^3/ul (0-0.6); ABS Lymphocytes 0.9 10^3/ul (1.0-4.8); ABS Monocytes 0.5 10^3/ul (0-0.8); Eosinophil % 1.4 %; Hematocrit 35 % (35-47); Hemoglobin 12.1 g/dL (12.0-16.0); Lymphocyte % 13.1 %; Mean Corpuscular HGB Conc 34 g/dL (31-36); Mean Corpuscular Hemoglobin 34 pg (27-31); Mean Corpuscular Volume 99 fL (80-97); Mean Platelet Volume 9.1 fL (7.4-10.4); Platelet Count 193 10^3/uL (150-450); Red Blood Count 3.54 10^6 /uL (3.70-4.87); Red Cell Distribution Width 12 % (10-15); White Blood Count 6.5 10^3/uL (3.5-10.8)
[2020-04-20] MEDS ORDERED: ceFAZolin 1 GM in Dextrose 1 GM/50 ML BAG IVPB ONE (01:15)
[2020-04-20] MEDS ORDERED: ADVAN IVPB ONE ×2 (02:30)
[2020-04-20] MEDS ORDERED: NS 0.9% IVPB ONE ×2 (02:30)
[2020-04-20] MEDS ORDERED: CEFAZOLIN IVPB ONE ×2 (02:30)
[2020-04-20] MEDS ORDERED: Ondansetron 4 mg VIAL 2 MG/ML 2 ml VIAL IV PRN (04:38)
[2020-04-20] MEDS ORDERED: Rabies VIRUS VACCINE (RabAvert) 2.5 UNITS VIAL IM ONE (05:05)
[2020-04-20] MEDS ORDERED: DOXYcycline 100 MG in NS 0.9% 250 ml 250 ML IVPB SCH ×2 (08:00→09:00)
[2020-04-20] MEDS ORDERED: NORGEST PO SCH (09:00)
[2020-04-20] MEDS ORDERED: E ESTRADIOL E ESTRAD PO SCH (09:00)
[2020-04-20 09:19] LABS: Albumin 3.5 g/dL (3.2-5.2); Albumin/Globulin Ratio 1.2 (1-3); BUN/Creatinine Ratio 13.3 (8-20); EGFR African American 98.6 (>60); EGFR Non-African American 81.5 (>60); Globulin 2.9 g/dL (2-4); Potassium 3.6 mmol/L (3.5-5.0); Total Bilirubin 0.4 mg/dL (0.2-1.0); Total Protein 6.4 g/dL (6.4-8.9)
[2020-04-20] MEDS: E ESTRADIOL E ESTRAD PO SCH (09:47)
[2020-04-20] MEDS: NORGEST PO SCH (09:47)
[2020-04-20] MEDS ORDERED: ceFAZolin VIAL 2 GM in NS 0.9% 100 ml BAG 100 ML IVPB SCH (10:00)
[2020-04-20] MEDS: ceFAZolin 2 GM PREMIX 2 GM/50 ML BAG IVPB SCH ×3 (11:33→18:26)
[2020-04-20 12:50] LABS: C Reactive Protein 52.91 mg/L (<8.01)
[2020-04-20 13:53] LABS: ABS Eosinophils 0.1 10^3/ul (0-0.6); ABS Lymphocytes 1.1 10^3/ul (1.0-4.8); ABS Monocytes 0.6 10^3/ul (0-0.8); ABS Neutrophils 5.6 10^3/ul (1.5-7.7); Eosinophil % 1.6 %; Hematocrit 34 % (35-47); Hemoglobin 11.7 g/dL (12.0-16.0); Lymphocyte % 15.2 %; Mean Corpuscular HGB Conc 34 g/dL (31-36); Mean Corpuscular Hemoglobin 34 pg (27-31); Mean Corpuscular Volume 100 fL (80-97); Platelet Count 204 10^3/uL (150-450); Red Blood Count 3.42 10^6 /uL (3.70-4.87); Red Cell Distribution Width 12 % (10-15); White Blood Count 7.5 10^3/uL (3.5-10.8)
[2020-04-20] MEDS ORDERED: NS 0.9% 500 ml BAG 500 ML IV ONE (16:38)
[2020-04-20] MEDS ORDERED: NS 0.9% 1000 ml BAG 1,000 ML IV SCH (18:30)
[2020-04-21] MEDS: ceFAZolin 2 GM PREMIX 2 GM/50 ML BAG IVPB SCH ×3 (01:59→18:15)
[2020-04-21 07:35] LABS: ABS Basophils 0.1 10^3/ul (0-0.2); ABS Eosinophils 0.2 10^3/ul (0-0.6); ABS Lymphocytes 1.2 10^3/ul (1.0-4.8); ABS Monocytes 0.4 10^3/ul (0-0.8); ABS Neutrophils 4.6 10^3/ul (1.5-7.7); Eosinophil % 2.7 %; Hematocrit 34 % (35-47); Hemoglobin 12.2 g/dL (12.0-16.0); Lymphocyte % 18.1 %; Mean Corpuscular HGB Conc 36 g/dL (31-36); Mean Corpuscular Hemoglobin 36 pg (27-31); Mean Corpuscular Volume 100 fL (80-97); Mean Platelet Volume 9.5 fL (7.4-10.4); Platelet Count 206 10^3/uL (150-450); Red Blood Count 3.44 10^6 /uL (3.70-4.87); Red Cell Distribution Width 12 % (10-15); White Blood Count 6.4 10^3/uL (3.5-10.8)
[2020-04-21 07:49] LABS: BUN/Creatinine Ratio 13.1 (8-20); C Reactive Protein 37.92 mg/L (<8.01); Calcium 8.5 mg/dL (8.6-10.3); EGFR African American 86.5 (>60); EGFR Non-African American 71.5 (>60); Potassium 3.8 mmol/L (3.5-5.0)
[2020-04-21] MEDS ORDERED: Influenza VAC *QUAD* 2020-21* 0.5 ML SYRINGE IM ONE (09:00)
[2020-04-21] MEDS: E ESTRADIOL E ESTRAD PO SCH (10:14)
[2020-04-21] MEDS: NORGEST PO SCH (10:14)
[2020-04-22] MEDS: ceFAZolin 2 GM PREMIX 2 GM/50 ML BAG IVPB SCH ×2 (02:13→10:30)
[2020-04-22 07:01] LABS: ABS Eosinophils 0.2 10^3/ul (0-0.6); ABS Lymphocytes 1.1 10^3/ul (1.0-4.8); ABS Monocytes 0.4 10^3/ul (0-0.8); ABS Neutrophils 3.6 10^3/ul (1.5-7.7); Eosinophil % 3.7 %; Hematocrit 33 % (35-47); Hemoglobin 11.7 g/dL (12.0-16.0); Lymphocyte % 20.3 %; Mean Corpuscular HGB Conc 35 g/dL (31-36); Mean Corpuscular Hemoglobin 35 pg (27-31); Mean Corpuscular Volume 99 fL (80-97); Mean Platelet Volume 8.7 fL (7.4-10.4); Platelet Count 220 10^3/uL (150-450); Red Blood Count 3.38 10^6 /uL (3.70-4.87); Red Cell Distribution Width 12 % (10-15); White Blood Count 5.4 10^3/uL (3.5-10.8)
[2020-04-22 07:26] LABS: BUN/Creatinine Ratio 15.2 (8-20); Calcium 7.8 mg/dL (8.6-10.3); EGFR African American 92.8 (>60); EGFR Non-African American 76.7 (>60); Potassium 3.7 mmol/L (3.5-5.0)
[2020-04-22] MEDS: NORGEST PO SCH (09:37)
[2020-04-22] MEDS: E ESTRADIOL E ESTRAD PO SCH (09:37)
[2020-04-22 11:48] VITALS: BP 101/63
== END 2020-04-22 12:30 | disposition home or self-care (01) ==
LOC: ED 21:02 → MED 21:02 → ED 04-20 07:29
PROVIDERS: ADMIT Student in an Organized Health Care Education/Training Program; ATTEND Internal Medicine